=== PATIENT | female | born 1935 | race Caucasian/White ===

== ENCOUNTER → 2017-06-28 | Outpatient (CLI) | payer MEDICARE ==
[2017-06-28 12:17] LABS: HEMATOCRIT 38.8 % (36.0-47.0); HEMOGLOBIN 13.4 g/dL (12.0-15.5); HGB HCT DIFFERENCE 1.4; MEAN CORPUSCULAR HEMOGLOBIN 32.2 pg (27.0-33.4); MEAN CORPUSCULAR HGB CONC 34.5 g/dL (32.0-36.0); MEAN CORPUSCULAR VOLUME 93 fl (80-97); RED BLOOD COUNT 4.17 10^6/uL (3.72-5.28); RED CELL DISTRIBUTION WIDTH 13.7 % (11.5-14.0); WHITE BLOOD COUNT 6.5 10^3/uL (4.0-10.5)
[2017-06-28 12:43] LABS: ALANINE AMINOTRANSFERASE 26 U/L (9-52); ALBUMIN 3.7 g/dL (3.5-5.0); ALKALINE PHOSPHATASE 70 U/L (38-126); ANION GAP 8 (5-19); ASPARTATE AMINO TRANSFERASE 22 U/L (14-36); BILIRUBIN,DIRECT 0.3 mg/dL (0.0-0.4); BILIRUBIN,TOTAL 0.9 mg/dL (0.2-1.3); BLOOD UREA NITROGEN 23 mg/dL (7-20); CALCIUM 8.6 mg/dL (8.4-10.2); CARBON DIOXIDE 28 mmol/L (22-30); CHLORIDE 107 mmol/L (98-107); CHOLESTEROL 200.01 mg/dL (0-200); CREATININE RESULT 0.87 mg/dL (0.52-1.25); Direct HDL 65 mg/dL (>40); GLUCOSE 84 mg/dL (75-110); MAGNESIUM 2.1 mg/dL (1.6-2.3); POTASSIUM 4.8 mmol/L (3.6-5.0); SODIUM 142.8 mmol/L (137-145); TOTAL PROTEIN 6.3 g/dL (6.3-8.2); TRIGLYCERIDES 99 mg/dL (<150)
[2017-06-28 12:54] LABS: DIRECT LDL 108 mg/dL (<100)
== END ==
LOC: OD 10:57
PROVIDERS: ATTEND Internal Medicine Cardiovascular Disease
DX: E78.00 Pure hypercholesterolemia, unspecified (principal); R00.2 Palpitations; Z79.899 Other long term (current) drug therapy; I10 Essential (primary) hypertension
CPT/HCPCS: 36415; 80048; 80061; 80076; 83735; 83880; 84443; 85027

== ENCOUNTER → 2018-03-29 | Outpatient (CLI) | payer MEDICARE ==
[2018-03-29 13:31] LABS: HEMATOCRIT 40.6 % (36.0-47.0); HEMOGLOBIN 13.8 g/dL (12.0-15.5); MEAN CORPUSCULAR HEMOGLOBIN 31.5 pg (27.0-33.4); MEAN CORPUSCULAR HGB CONC 33.9 g/dL (32.0-36.0); MEAN CORPUSCULAR VOLUME 93 fl (80-97); PLATELET COUNT 203 10^3/uL (150-450); RED BLOOD COUNT 4.37 10^6/uL (3.72-5.28); RED CELL DISTRIBUTION WIDTH 14.4 % (11.5-14.0); WHITE BLOOD COUNT 6.4 10^3/uL (4.0-10.5)
[2018-03-29 13:47] LABS: ANION GAP 9 (5-19); BLOOD UREA NITROGEN 22 mg/dL (7-20); CARBON DIOXIDE 23 mmol/L (22-30); CHLORIDE 111 mmol/L (98-107); CHOLESTEROL 193.93 mg/dL (0-200); GLUCOSE 89 mg/dL (75-110); POTASSIUM 4.5 mmol/L (3.6-5.0); SODIUM 142.7 mmol/L (137-145); TRIGLYCERIDES 105 mg/dL (<150)
[2018-03-29 13:57] LABS: DIRECT LDL 108 mg/dL (<100)
== END ==
LOC: OD 12:31
PROVIDERS: ATTEND Internal Medicine Cardiovascular Disease
DX: R06.02 Shortness of breath (principal); I10 Essential (primary) hypertension; E78.00 Pure hypercholesterolemia, unspecified
CPT/HCPCS: 36415; 80048; 80061; 83880; 85027

== ENCOUNTER 2018-04-23 14:43 | Emergency (ER) | payer MEDICARE ==
--- NOTE | 2018-04-23 15:27 | ER Document Report ---
ED Medical Screen (RME) - General Chief Complaint: Abnormal Lab Results Stated Complaint: ABDNORMAL TEST RESULTS Time Seen by Provider: 04/23/18 15:06 Mode of Arrival: Ambulatory Information source: Patient Notes: 82-year-old female presents from her primary care physician's office with left lower extremity swelling and shortness of breath that have been ongoing for approximately 1 month since being in [place]. I have greeted and performed a rapid initial assessment of this patient. A comprehensive ED assessment and evaluation of the patient, analysis of test results and completion of medical decision making process we will be contacted by additional ED providers. PHYSICAL EXAMINATION: Vital signs reviewed GENERAL: Well-appearing, well-nourished and in no acute distress. LUNGS: No respiratory distress Musculoskeletal: Normal range of motion NEUROLOGICAL: Normal speech, normal gait. PSYCH: Normal mood, normal affect. SKIN: Warm, Dry, normal turgor, no rashes or lesions noted. TRAVEL OUTSIDE OF THE [place] IN LAST 30 DAYS: Yes COUNTRY TRAVELED TO/FROM: [place] - HPI Onset: Other Onset/Duration: Persistent Quality of pain: No pain Associated Symptoms: Leg swelling, Shortness of breath Exacerbated by: Denies Relieved by: Denies Similar symptoms previously: No Recently seen / treated by doctor: No - Related Data Smoking: Non-smoker Frequency of alcohol use: None Drug Abuse: None Allergies/Adverse Reactions: NSAIDS (Non-Steroidal Anti-Inflamma Allergy (Verified 04/23/18 14:47) Past Medical History - Social History Chew tobacco use (# tins/day): No Frequency of alcohol use: None Drug Abuse: None Renal/ Medical History: Denies: Hx Peritoneal Dialysis GI Medical History: Reports: Hx Gastroesophageal Reflux Disease Past Surgical History: Reports: Hx Breast Surgery Physical Exam - Vital signs Vitals: Temp Pulse Resp BP Pulse Ox 98.0 F 50 L 16 140/46 H 97 04/23/18 15:05 04/23/18 15:05 04/23/18 15:05 04/23/18 15:05 04/23/18 15:05 Course - Vital Signs Vital signs: Temp Pulse Resp BP Pulse Ox 98.0 F 50 L 16 140/46 H 97 04/23/18 15:05 04/23/18 15:05 04/23/18 15:05 04/23/18 15:05 04/23/18 15:05 Doctor's Discharge - Discharge Referrals: CARMINA BOOTHE MD [Primary Care Provider] - Follow up as needed
--- NOTE | 2018-04-23 16:21 | RADIOLOGY REPORT (SQ) ---
EXAM DESCRIPTION: CHEST SINGLE VIEW COMPLETED DATE/TIME: 04/23/2018 4:01 pm REASON FOR STUDY: sob COMPARISON: 08/29/2013. EXAM PARAMETERS: NUMBER OF VIEWS: One view. TECHNIQUE: Single frontal radiographic view of the chest acquired. RADIATION DOSE: NA LIMITATIONS: None. FINDINGS: LUNGS AND PLEURA: No acute infiltrates or effusions. Chronic bibasilar interstitial sanz es. MEDIASTINUM AND HILAR STRUCTURES: No masses. Contour normal. HEART AND VASCULAR STRUCTURES: The heart is borderline in size with uncoiling of an atherosclerotic t horacic aorta. Pulmonary vasculature is normal. BONES: No acute findings. HARDWARE: Surgical clips left axilla. OTHER: No other significant finding. IMPRESSION: Borderline cardiomegaly. Chronic bibasilar interstitial change. TECHNICAL DOCUMENTATION: JOB ID: [id number] 2010 [employer]- All Rights Reserved Reading location - IP/workstation name: [email or web address]
--- NOTE | 2018-04-23 16:59 | RADIOLOGY REPORT (SQ) ---
EXAM DESCRIPTION: VENOUS UNILATERAL LOWER COMPLETED DATE/TIME: 04/23/2018 4:46 pm REASON FOR STUDY: pain left leg / Hx clots COMPARISON: None. TECHNIQUE: Dynamic and static lopez scale and color images acquired of the left leg venous system. Se lected spectral images acquired with additional compression and augmentation maneuvers. The contralat eral common femoral vein and saphenofemoral junction were also imaged. Images stored on PACS. LIMITATIONS: None. FINDINGS: COMMON FEMORAL: Normal phasicity, compression and augmentation. No visualized echogenic ma terial on lopez scale. No defects on color images. FEMORAL: Normal compression and augmentation. No visualized echogenic material on lopez scale. No defe cts on color images. POPLITEAL: Normal compression, augmentation. No visualized echogenic material on lopez scale. No defec ts on color images. CALF VESSELS: Normal compression, augmentation. No visualized echogenic material on lopez scale. No de fects on color images. GSV and SSV: Normal compression, augmentation. No visualized echogenic material on lopez scale. No def ects on color images. ANY DEEP VENOUS INSUFFICIENCY: Not evaluated. ANY EVIDENCE OF POPLITEAL CYST: No. OTHER: No other significant finding. CONTRALATERAL COMMON FEMORAL VEIN AND SAPHENOFEMORAL JUNCTION: Normal phasicity, compression and augmentation. No visualized echogenic material on lopez scale. No de fects on color images. IMPRESSION: NO EVIDENCE DVT OR SVT IN THE LEFT LEG. TECHNICAL DOCUMENTATION: JOB ID: [id number] [employer]- All Rights Reserved Reading location - IP/workstation name: [facility]
--- NOTE | 2018-04-23 17:17 | ER Document Report ---
ED General - General Chief Complaint: Abnormal Lab Results Stated Complaint: ABDNORMAL TEST RESULTS Time Seen by Provider: 04/23/18 15:06 Mode of Arrival: Ambulatory Information source: Patient Notes: 82-year-old female who was referred to the emergency room because of left lower extremity swelling and concerns for VTE. The patient is fairly active and lives alone. She did visit [facility] for 5 weeks in February and had noticed that she had shortness of breath with exertion. She is very familiar with [place] and used to live there. She came home on March 28 and states for the month of March, she has not really had any shortness of breath. She denies any shortness of breath or chest pain at this time. She was in the office today of the box toe buffer and they were concerned because she had been saying that she had some left lower extremity swelling as well as the symptoms and [place] last month. TRAVEL OUTSIDE OF THE [place] IN LAST 30 DAYS: Yes COUNTRY TRAVELED TO/FROM: [place] - HPI Onset: This morning Onset/Duration: Gradual Quality of pain: No pain Severity: None Pain Level: Denies Associated symptoms: Shortness of breath. denies: Chest pain, Fever Exacerbated by: Denies Relieved by: Denies Similar symptoms previously: Yes Recently seen / treated by doctor: Yes - Related Data Allergies/Adverse Reactions: NSAIDS (Non-Steroidal Anti-Inflamma Allergy (Verified 04/23/18 14:47) Past Medical History - General Information source: Patient - Social History Smoking Status: Never Smoker Cigarette use (# per day): No Chew tobacco use (# tins/day): No Frequency of alcohol use: None Drug Abuse: None Lives with: Alone Family History: None Patient has suicidal ideation: No Patient has homicidal ideation: No - Past Medical History Cardiac Medical History: Reports: Hx Hypertension Pulmonary Medical History: Reports: None EENT Medical History: Reports: None Neurological Medical History: Reports: None Endocrine Medical History: Reports: None Renal/ Medical History: Reports: None. Denies: Hx Peritoneal Dialysis Malignancy Medical History: Reports: None GI Medical History: Reports: Hx Gastroesophageal Reflux Disease Musculoskeletal Medical History: Reports Hx Arthritis Skin Medical History: Reports None Psychiatric Medical History: Reports: None Traumatic Medical History: Reports: None Infectious Medical History: Reports: None Past Surgical History: Reports: Hx Breast Surgery Review of Systems - Review of Systems Constitutional: denies: Chills, Fever EENT: No symptoms reported Cardiovascular: See HPI Respiratory: See HPI Gastrointestinal: No symptoms reported Genitourinary: No symptoms reported Female Genitourinary: No symptoms reported Musculoskeletal: No symptoms reported Skin: No symptoms reported Hematologic/Lymphatic: No symptoms reported Neurological/Psychological: No symptoms reported Physical Exam - Vital signs Vitals: Temp Pulse Resp BP Pulse Ox 98.0 F 50 L 16 140/46 H 97 04/23/18 15:05 04/23/18 15:05 04/23/18 15:05 04/23/18 15:05 04/23/18 15:05 Notes: Physical exam: GENERAL: Patient is alert and oriented x3 and in no distress. She denies chest pain or shortness of breath. She states she has not had shortness of breath since coming home from [facility]. HEAD: Atraumatic, normocephalic. EYES: Pupils equal round and reactive to light, extraocular movements intact, sclera anicteric, conjunctiva are normal. ENT: TMs normal, nares patent, oropharynx clear without exudates. Moist mucous membranes. NECK: Normal range of motion, supple without obvious mass or JVD. LUNGS: Breath sounds clear to auscultation bilaterally and equal. No wheezes rales or rhonchi. HEART: Regular rate and rhythm without murmurs, rubs or gallops. ABDOMEN: Soft, normoactive bowel sounds. No tenderness to palpation. No guarding, no rebound. No masses appreciated. EXTREMITIES: Normal range of motion, no pitting or edema. No clubbing or cyanosis. I do not detect any significant asymmetry in her calves. They are nontender. There is no significant swelling. She has had bilateral knee surgery which is well-healed. Her toes are pink with good perfusion and she has strong dorsal pedal pulse bilaterally. NEUROLOGICAL: Cranial nerves II through XII grossly intact. Normal speech, moving all extremities. PSYCH: Normal mood, normal affect. SKIN: Warm, Dry, normal turgor, no rashes or lesions noted. Course - Re-evaluation Re-evalutation: 04/23/18 23:29 Note: I had a long conversation with the patient. She used to live in [facility] and was visiting in the month of February and was having dyspnea on exertion. She came back March 28 and has not had shortness of breath since that time. She went to her box toe buffer's office because of some lower extremity swelling more on the left than the right. She was sent here to rule out VTE. On physical exam, her oxygen saturation is 98% on room air. She denies any chest pain or shortness of breath. She looks quite comfortable. Her lower extremities do not show any asymmetric changes. There is no calf tenderness. There is no skin changes. A venous ultrasound was performed and showed no evidence of DVT. Chest x-ray was baseline. Plan: Follow-up with box toe buffer. Patient is okay with plan and I have discussed the results of the tests with her. I do not see any reason to progress any further (i.e. CTA/VQ scan) as I do not think she has any evidence of PE. - Vital Signs Vital signs: Temp Pulse Resp BP Pulse Ox 97.8 F 62 16 143/78 H 96 04/23/18 18:24 04/23/18 18:24 04/23/18 18:24 04/23/18 18:24 04/23/18 18:24 - Diagnostic Test Radiology reviewed: Image reviewed, Reports reviewed - Chest x-ray shows some baseline cardiomegaly with some chronic venous changes. There is no acute infiltrates Venous ultrasound shows no evidence of DVT. - EKG Interpretation by Me Rate: Normal Rhythm: NSR - EKG is sinus rhythm with a ventricular rate of 50, no acute ST-T wave changes. Discharge - Discharge Clinical Impression: Leg swelling Condition: Stable Disposition: HOME, SELF-CARE Additional Instructions: As we discussed, the venous ultrasound shows no evidence of blood clot. Your oxygen level was 99% on room air and your chest x-ray looked baseline. Your pulse was a little on the low side at 50, I would not take the metoprolol for 2 days. I would follow-up in Dr. Sanchez's office this week: Let them know that the venous ultrasound showed no evidence of clot. There are times if you have persistent swelling in the left leg, that the ultrasound will be repeated to see if there is any evidence of blood clot. Return to the emergency room for any chest pain, shortness of breath or worsening swelling of the legs. Note: I did try leaving word with Dr. Sanchez's office but he has already signed out for the evening. Referrals: CARMINA BOOTHE MD [Primary Care Provider] - Follow up as needed
[2018-04-23 18:25] VITALS: BP 143/78
--- NOTE | 2018-04-23 22:47 | EKG REPORT ---
SEVERITY:- OTHERWISE NORMAL ECG - SINUS RHYTHM BORDERLINE LEFT AXIS DEVIATION : Confirmed by: Braxton Gaines 23-Apr-2018 22:47:29
== END 2018-04-23 18:25 | disposition home or self-care (01) ==
LOC: ER 14:43
DX: M79.89 Other specified soft tissue disorders (principal); I11.9 Hypertensive heart disease without heart failure; Z88.8 Allergy status to other drugs, medicaments and biological substances
CPT/HCPCS: 71045; 93005; 93010; 93971; 99284

== ENCOUNTER → 2018-05-08 | Outpatient (CLI) | payer MEDICARE | LOC: OD 14:15 | PROVIDERS: ATTEND Physician Assistant | DX: R06.02 Shortness of breath (principal) | CPT/HCPCS: 36415; 83880 ==

== ENCOUNTER → 2018-05-23 | Outpatient (CLI) | payer MEDICARE ==
[~2018-05-23] MED LIST: ALBUTEROL SULFATE 0.083% NEB 2.5 MG/3 ML AMPUL NEB ONE
--- NOTE | 2018-05-24 17:48 | Pulmonary Function Test ---
Pulmonary Function Test Date of Procedure:: 05/24/18 INDICATION:: Dyspnea on exertion Referring Provider: Dr. Gil Garcia City Constable: Leslie Rachel [employer] - Report Spirometry: FVC 1.66 L 74% postbronchodilator 1.84 L 82% FEV1 1.27 L 79% postbronchodilator 1.52 L 94% FEV1/FVC % 77 postbronchodilator 82 predicted 81 FEF 25-75% 1.07 L 81% postbronchodilator 1.87 L 141% Lung Volume: Total lung capacity 2.61 L 63% Vital capacity 1.66 L 74% Inspiratory capacity 1.11 L FRC in 2 1.50 L 68% ERV 0.29 L RV 0.95 L 53% RV/TLC% 36 predicted 43 Diffusion Capactity: Diffusion capacity 5.3 29% DLCO/VA 3.25 97% Impression: Mild restrictive ventilatory defect. (Restrictive defect may mask the degree of obstruction) This spirometry does not support the diagnosis of obstructive ventilatory defect.No hyperinflation or air trapping. Severe decrease in diffusion capacity.
== END ==
LOC: RT 08:46
PROVIDERS: ATTEND Internal Medicine Cardiovascular Disease
DX: R06.02 Shortness of breath (principal); I10 Essential (primary) hypertension; E78.00 Pure hypercholesterolemia, unspecified
CPT/HCPCS: 94729; 94727; 94060; A9270

== ENCOUNTER → 2018-11-22 | Outpatient (CLI) | payer MEDICARE ==
[2018-11-22 12:29] LABS: HEMATOCRIT 39.8 % (36.0-47.0); HEMOGLOBIN 13.5 g/dL (12.0-15.5); MEAN CORPUSCULAR HEMOGLOBIN 31.8 pg (27.0-33.4); MEAN CORPUSCULAR VOLUME 93 fl (80-97); PLATELET COUNT 167 10^3/uL (150-450); RED BLOOD COUNT 4.26 10^6/uL (3.72-5.28); RED CELL DISTRIBUTION WIDTH 13.9 % (11.5-14.0); WHITE BLOOD COUNT 8.2 10^3/uL (4.0-10.5)
== END ==
LOC: LAB 12:12
PROVIDERS: ATTEND Internal Medicine Cardiovascular Disease
DX: M79.10 Myalgia, unspecified site (principal)
CPT/HCPCS: 36415; 82306; 82550; 83735; 84443; 85027

== ENCOUNTER → 2019-01-28 | Outpatient (CLI) | payer MEDICARE ==
[2019-01-28 16:19] LABS: ALANINE AMINOTRANSFERASE 30 U/L (9-52); ALBUMIN 3.9 g/dL (3.5-5.0); ALKALINE PHOSPHATASE 84 U/L (38-126); ASPARTATE AMINO TRANSFERASE 29 U/L (14-36); BILIRUBIN,DIRECT 0.2 mg/dL (0.0-0.4); CHOLESTEROL 154.81 mg/dL (0-200); TOTAL PROTEIN 6.8 g/dL (6.3-8.2); TRIGLYCERIDES 131 mg/dL (<150)
[2019-01-28 16:30] LABS: DIRECT LDL 76 mg/dL (<100)
== END ==
LOC: LAB 13:32
PROVIDERS: ATTEND Internal Medicine Cardiovascular Disease
DX: E78.00 Pure hypercholesterolemia, unspecified (principal); Z79.899 Other long term (current) drug therapy
CPT/HCPCS: 36415; 80061; 80076

== ENCOUNTER → 2019-05-21 | Outpatient (CLI) | payer MEDICARE ==
[2019-05-21 11:16] LABS: ALBUMIN 4.1 g/dL (3.5-5.0); ALKALINE PHOSPHATASE 78 U/L (38-126); ASPARTATE AMINO TRANSFERASE 21 U/L (14-36); CARBON DIOXIDE 28 mmol/L (22-30); CREATINE KINASE 59 U/L (30-135); GLUCOSE 99 mg/dL (75-110)
[2019-05-21 11:27] LABS: DIRECT LDL 87 mg/dL (<100)
[2019-05-21 11:43] LABS: TOTAL PROTEIN 7.1 g/dL (6.3-8.2)
[2019-05-21 11:46] LABS: ANION GAP 8 (5-19); BILIRUBIN,TOTAL 1.2 mg/dL (0.2-1.3); BLOOD UREA NITROGEN 26 mg/dL (7-20); CALCIUM 9.3 mg/dL (8.4-10.2); CHLORIDE 105 mmol/L (98-107); CHOLESTEROL 167.16 mg/dL (0-200); POTASSIUM 4.6 mmol/L (3.6-5.0); TRIGLYCERIDES 106 mg/dL (<150)
== END ==
LOC: LAB 10:28
PROVIDERS: ATTEND Internal Medicine Cardiovascular Disease
DX: E78.00 Pure hypercholesterolemia, unspecified (principal); I10 Essential (primary) hypertension; Z79.899 Other long term (current) drug therapy
CPT/HCPCS: 36415; 80048; 80061; 80076; 82550

== ENCOUNTER → 2020-04-08 | Outpatient (CLI) | payer MEDICARE ==
[2020-04-08 13:10] LABS: HEMATOCRIT 37.6 % (36.0-47.0); HEMOGLOBIN 13.2 g/dL (12.0-15.5); MEAN CORPUSCULAR HEMOGLOBIN 32.7 pg (27.0-33.4); MEAN CORPUSCULAR HGB CONC 35.1 g/dL (32.0-36.0); MEAN CORPUSCULAR VOLUME 93 fl (80-97); PLATELET COUNT 188 10^3/uL (150-450); RED BLOOD COUNT 4.04 10^6/uL (3.72-5.28); RED CELL DISTRIBUTION WIDTH 13.8 % (11.5-14.0); WHITE BLOOD COUNT 7.1 10^3/uL (4.0-10.5)
[2020-04-08 13:38] LABS: ANION GAP 6 (5-19); BLOOD UREA NITROGEN 22 mg/dL (7-20); CALCIUM 8.5 mg/dL (8.4-10.2); CARBON DIOXIDE 27 mmol/L (22-30); CHLORIDE 107 mmol/L (98-107); GLUCOSE 91 mg/dL (75-110); POTASSIUM 4.7 mmol/L (3.6-5.0)
== END ==
LOC: OD 12:27
PROVIDERS: ATTEND Internal Medicine Cardiovascular Disease
DX: I10 Essential (primary) hypertension (principal); R06.02 Shortness of breath; R00.2 Palpitations; Z79.01 Long term (current) use of anticoagulants; Z79.899 Other long term (current) drug therapy
CPT/HCPCS: 36415; 80048; 85027; 85730